=== PATIENT | female | born 1965 | race Caucasian/White ===

== ENCOUNTER 2018-02-01 02:41 | Inpatient (IN) | payer OTHER ==
[2018-02-01] VITALS (10 sets, daily range): BP systolic 96–135; BP diastolic 60–86; PULSE 74–110; RESP 16–20; TEMP 98–100.8; O2SAT 96–100
[~2018-02-01] VITALS: Ht 162.6 cm; Wt 68.1 kg
[2018-02-01] MEDS ORDERED: SODIUM CHLOR 0.9% 1000 ML INJ 1,000 ML IV SCH (03:23)
[2018-02-01] MEDS ORDERED: ONDANSETRON HCL 4 MG/2 ML VIAL IV PUSH ONE (03:30)
[2018-02-01] MEDS ORDERED: MORPHINE SULFATE 4 MG/ML INJ IV PUSH ONE ×2 (03:30→05:45)
[2018-02-01 03:45] LABS: BASOPHIL # 0.1 TH/MM3 (0-0.2); BASOPHIL % 0.6 % (0.0-2.0); EOSINOPHIL # 0.1 TH/MM3 (0-0.4); EOSINOPHIL % 0.9 % (0.0-4.0); HEMATOCRIT 38.6 % (35.0-46.0); LYMPH % 29.9 % (9.0-44.0); LYMPHOCYTE # 4.2 TH/MM3 (1.0-4.8); MEAN CELL VOLUME 85.4 FL (80.0-100.0); MEAN CORPUSCULAR HEMOGLOBIN 28.8 PG (27.0-34.0); MEAN CORPUSCULAR HGB CONC 33.8 % (32.0-36.0); MEAN PLATELET VOLUME 8.7 FL (7.0-11.0); MONO % 4.5 % (0.0-8.0); MONOCYTE # 0.6 TH/MM3 (0-0.9); NEUT % 64.1 % (16.0-70.0); PLATELET COUNT 287 TH/MM3 (150-450); RED BLOOD COUNT 4.52 MIL/MM3 (4.00-5.30); RED CELL DISTRIBUTION WIDTH 12.6 % (11.6-17.2)
[2018-02-01 04:18] LABS: BICARBONATE 28.5 MEQ/L (21.0-32.0); CALCIUM 9.2 MG/DL (8.5-10.1); CREATININE 0.83 MG/DL (0.50-1.00); PROTHROMBIN TIME - PATIENT 10.3 SEC (9.8-11.6)
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
[2018-02-01] MEDS ORDERED: IOHEXOL 350 MG/ML 10 ML VIAL (for RAD DIAG) IVCONTRAST ONE ×2 (05:18→06:33)
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
[2018-02-01] MEDS ORDERED: ONDANSETRON HCL 4 MG/2 ML VIAL IV PUSH PRN (06:30)
[2018-02-01] MEDS ORDERED: MORPHINE SULFATE 2 MG/ML INJ IV PUSH PRN (06:30)
[2018-02-01] MEDS ORDERED: BISACODYL 10 MG SUPP RECTAL PRN (06:30)
[2018-02-01] MEDS ORDERED: SENNOSIDES 8.6 MG TAB PO PRN (06:30)
[2018-02-01] MEDS ORDERED: MAGNESIUM HYDROXIDE SUSP 30 ML CUP PO PRN (06:30)
[2018-02-01] MEDS ORDERED: CHLORHEXIDINE GLUCONATE 2 % 1 PACK (2 CLOTHS) TOP PRN (06:30)
[2018-02-01] MEDS ORDERED: LACTULOSE SYRUP 20 GM/30 ML CUP PO PRN (06:30)
[2018-02-01] MEDS ORDERED: MISCELLANEOUS NURSING INFORMATION XX SCH (06:30)
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
[2018-02-01] MEDS: ACETAMINOPHEN 1000 MG/100 ML 100 ML IV SCH ×3 (07:56→20:35)
[2018-02-01] MEDS: SODIUM CHLOR 0.9% 1000 ML INJ 1,000 ML IV SCH ×2 (07:57→16:18)
[2018-02-01] MEDS: DOCUSATE SODIUM 50 MG/SENNA 8.6 MG TAB PO SCH ×2 (08:04→20:34)
[2018-02-01] MEDS: METHOCARBAMOL 500 MG TAB PO SCH ×2 (09:32→17:41)
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
[2018-02-01] MEDS: MORPHINE SULFATE 4 MG/ML INJ IV PUSH PRN ×2 (14:26→20:36)
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
--- NOTE | 2018-02-01 17:50 | EKG ---
Date Performed: 02/01/2018 Time Performed: 03:00:42 PTAGE: 52 years EKG: Sinus rhythm WITH SINUS ARRHYTHMIA NORMAL ECG NO PREVIOUS TRACING DOCTOR: Felice Vail Interpretating Date/Time 02/01/2018 17:48:39
[2018-02-02] VITALS (10 sets, daily range): BP systolic 106–134; BP diastolic 71–82; PULSE 79–104; RESP 14–18; TEMP 98.1–99.1; O2SAT 95–98
[2018-02-02] MEDS: METHOCARBAMOL 500 MG TAB PO SCH ×3 (00:58→16:46)
[2018-02-02] MEDS: SODIUM CHLOR 0.9% 1000 ML INJ 1,000 ML IV SCH (00:59)
[2018-02-02] MEDS: MORPHINE SULFATE 4 MG/ML INJ IV PUSH PRN ×2 (01:05→14:15)
[2018-02-02] MEDS: ACETAMINOPHEN 1000 MG/100 ML 100 ML IV SCH (03:30)
[2018-02-02] MEDS ORDERED: CHLORHEXIDINE GLUCONATE 2 % 1 PACK (2 CLOTHS) TOP SCH (04:00)
[2018-02-02 04:37] LABS: AUTOMATED NEUTROPHIL # 6.1 TH/MM3 (1.8-7.7); BASOPHIL % 0.3 % (0.0-2.0); EOSINOPHIL % 0.3 % (0.0-4.0); HEMATOCRIT 31.3 % (35.0-46.0); HEMOGLOBIN 10.7 GM/DL (11.6-15.3); LYMPH % 14.4 % (9.0-44.0); LYMPHOCYTE # 1.1 TH/MM3 (1.0-4.8); MEAN CELL VOLUME 84.7 FL (80.0-100.0); MEAN CORPUSCULAR HEMOGLOBIN 28.9 PG (27.0-34.0); MEAN CORPUSCULAR HGB CONC 34.1 % (32.0-36.0); MEAN PLATELET VOLUME 8.5 FL (7.0-11.0); MONO % 6.2 % (0.0-8.0); MONOCYTE # 0.5 TH/MM3 (0-0.9); NEUT % 78.8 % (16.0-70.0); PLATELET COUNT 181 TH/MM3 (150-450); RED CELL DISTRIBUTION WIDTH 12.6 % (11.6-17.2); WHITE BLOOD COUNT 7.7 TH/MM3 (4.0-11.0)
[2018-02-02 05:03] LABS: BICARBONATE 26.7 MEQ/L (21.0-32.0); CALCIUM 8.1 MG/DL (8.5-10.1); CREATININE 0.65 MG/DL (0.50-1.00)
[2018-02-02] MEDS ORDERED: oxyCODONE/ACETAMINOPHEN 5 MG/325 MG TAB PO PRN (08:00)
[2018-02-02] MEDS: DOCUSATE SODIUM 50 MG/SENNA 8.6 MG TAB PO SCH ×2 (10:40→19:31)
[2018-02-02] MEDS: oxyCODONE/ACETAMINOPHEN 10 MG/325 MG TAB PO PRN ×2 (10:51→19:31)
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
[2018-02-03] VITALS: BP 111/68; PULSE 85; RESP 14; TEMP 98.9; O2SAT 100
[2018-02-03] MEDS: METHOCARBAMOL 500 MG TAB PO SCH ×3 (00:36→17:05)
[2018-02-03] MEDS: KETOROLAC TROMETHAMINE 30 MG/ML (IVP) VIAL IV PUSH SCH ×4 (00:37→17:48)
[2018-02-03] MEDS: oxyCODONE/ACETAMINOPHEN 10 MG/325 MG TAB PO PRN ×4 (06:11→17:48)
[2018-02-03 08:00] VITALS: BP 117/73; PULSE 83; RESP 18; TEMP 98; O2SAT 99
[2018-02-03 08:40] VITALS: PULSE 76
[2018-02-03] MEDS: DOCUSATE SODIUM 50 MG/SENNA 8.6 MG TAB PO SCH ×2 (09:38→20:45)
[2018-02-03 12:00] VITALS: BP 132/85; PULSE 96; RESP 16; TEMP 98.5; O2SAT 96
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
[2018-02-03] MEDS: ENOXAPARIN SODIUM 40 MG/0.4 ML SYRINGE SQ SCH (14:01)
[2018-02-03 16:00] VITALS: BP 116/74; PULSE 75; RESP 18; TEMP 96; O2SAT 97
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
[2018-02-03 20:00] VITALS: BP 160/91; PULSE 87; RESP 20; TEMP 98; O2SAT 100
[2018-02-04] VITALS: BP 145/88; PULSE 89; RESP 18; TEMP 98.3; O2SAT 98
[2018-02-04] MEDS: METHOCARBAMOL 500 MG TAB PO SCH ×4 (00:07→23:41)
[2018-02-04] MEDS: KETOROLAC TROMETHAMINE 30 MG/ML (IVP) VIAL IV PUSH SCH ×5 (00:13→23:41)
[2018-02-04] MEDS: oxyCODONE/ACETAMINOPHEN 10 MG/325 MG TAB PO PRN ×5 (06:12→23:41)
[2018-02-04 08:00] VITALS: BP 127/80; PULSE 87; RESP 18; TEMP 98.5; O2SAT 96
[2018-02-04] MEDS: DOCUSATE SODIUM 50 MG/SENNA 8.6 MG TAB PO SCH ×2 (08:25→20:36)
[2018-02-04] MEDS: MORPHINE SULFATE 4 MG/ML INJ IV PUSH PRN ×2 (08:34→20:37)
[2018-02-04 12:00] VITALS: BP 113/71; PULSE 85; RESP 16; TEMP 97.8; O2SAT 95
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
[2018-02-04] MEDS: ENOXAPARIN SODIUM 40 MG/0.4 ML SYRINGE SQ SCH (14:01)
[2018-02-04 16:00] VITALS: BP 118/69; PULSE 70; RESP 16; TEMP 97.7; O2SAT 96
[2018-02-04] MEDS ORDERED: XARE10TA PO (18:08)
[2018-02-04] MEDS ORDERED: WALKER WHEELS/F1 MIS (18:08)
[2018-02-04] MEDS ORDERED: OXYC1TAB63 PO (18:08)
[2018-02-04] MEDS ORDERED: SENN187 PO (18:08)
[2018-02-04] MEDS ORDERED: METH500T3 PO (18:08)
[2018-02-04] MEDS ORDERED: WHEEMIS3 (18:10)
[2018-02-04] MEDS ORDERED: COMMODE BEDSIDE1 MI1 (18:10)
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
[2018-02-04] MEDS ORDERED: LACTULOSE SYRUP 20 GM/30 ML CUP PO ONE (18:30)
[2018-02-04 20:00] VITALS: BP 148/87; PULSE 88; RESP 18; TEMP 97.3; O2SAT 98
[2018-02-05] VITALS: BP 128/84; PULSE 87; RESP 18; TEMP 99.4; O2SAT 98
[2018-02-05] MEDS: KETOROLAC TROMETHAMINE 30 MG/ML (IVP) VIAL IV PUSH SCH ×2 (06:27→12:14)
[2018-02-05 08:00] VITALS: BP 119/78; PULSE 101; RESP 19; TEMP 98.6; O2SAT 98
[2018-02-05] MEDS: oxyCODONE/ACETAMINOPHEN 10 MG/325 MG TAB PO PRN ×2 (09:13→13:06)
[2018-02-05] MEDS: METHOCARBAMOL 500 MG TAB PO SCH (09:14)
[2018-02-05] MEDS: DOCUSATE SODIUM 50 MG/SENNA 8.6 MG TAB PO SCH (09:14)
[2018-02-05 10:13] VITALS: RESP 18
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
== END 2018-02-05 14:25 | disposition home or self-care (01) | DRG 552 ==
LOC: NEPC 02:41 → NEDA 06:07 → N03B 08:26 → N07A 19:40
PROVIDERS: ADMIT Surgery Trauma Surgery; ATTEND Surgery Trauma Surgery
DX: S12.001A Unspecified nondisplaced fracture of first cervical vertebra, initial encounter for closed fracture (principal); S32.591A Other specified fracture of right pubis, initial encounter for closed fracture; S32.038A Other fracture of third lumbar vertebra, initial encounter for closed fracture; S32.119A Unspecified Zone I fracture of sacrum, initial encounter for closed fracture; S32.048A Other fracture of fourth lumbar vertebra, initial encounter for closed fracture; S32.058A Other fracture of fifth lumbar vertebra, initial encounter for closed fracture; V43.62XA Car passenger injured in collision with other type car in traffic accident, initial encounter; Y92.410 Unspecified street and highway as the place of occurrence of the external cause
CPT/HCPCS: 70450; 70498; 71045; 71260; 72125; 72129; 72132; 72170; 74177; 80048; 85025; 85610; 85730; 93005; 96361; 96374; 96375; 96376; J0131; J1650; J1885; J2270; J2405; J7030; L0150; L0172; Q9967